=== PATIENT | male | born 1970 | race Caucasian/White ===

== ENCOUNTER → 2024-05-12 | Outpatient (CLI) | payer BC ==
[2024-05-12 10:54] LABS: BASO # 0.06 K/mm3 (0.02-0.10); EOS # 0.16 K/mm3 (0.04-0.40); EOS % 2.7 % (0.0-4.0); HEMATOCRIT 52.7 % (42.0-52.0); HEMOGLOBIN 17.3 g/dL (13.5-18.0); MEAN CELL VOLUME 88 fl (78-100); MEAN CORPUSCULAR HEMOGLOBIN 29 pg (27-31); MEAN CORPUSCULAR HGB CONC 33 g/dL (33-37); MEAN PLATELET VOLUME 8.4 fl (7.4-10.4); MONO # 0.73 K/mm3 (0.20-0.80); NEU # 3.61 K/mm3 (1.40-6.50); PLATELET COUNT 221 K/mm3 (130-400); RED CELL DISTRIBUTION WIDTH 13.7 % (11.5-14.5)
[2024-05-12 11:02] LABS: ALBUMIN 4.4 g/dL (3.5-5.0)
[2024-05-12 11:04] LABS: CALCIUM 9.7 mg/dL (8.3-10.5)
[2024-05-12 11:05] LABS: TOTAL PROTEIN 7.6 g/dL (6.4-8.3)
[2024-05-12 11:07] LABS: TOTAL BILIRUBIN 0.7 mg/dL (0.2-1.2)
[2024-05-12 11:11] LABS: MAGNESIUM 2.05 mg/dL (1.60-2.60)
[2024-05-12 11:17] LABS: PH-URINE 5.5 (5.0 - 8.0); URINE APPEARANCE CLEAR (CLEAR); URINE BILIRUBIN NEGATIVE (NEGATIVE); URINE BLOOD NEGATIVE (NEGATIVE); URINE COLOR DARK YELLOW (YELLOW); URINE GLUCOSE NEGATIVE (NEGATIVE); URINE KETONE NEGATIVE (NEGATIVE); URINE LEUKOCYTE ESTERASE NEGATIVE (NEGATIVE); URINE NITRATE NEGATIVE (NEGATIVE); URINE PROTEIN(semi-quant) NEGATIVE (NEGATIVE)
[2024-05-12 11:19] LABS: URINE WBC 0-1 /hpf (0-3)
== END ==
LOC: LAB 10:36
PROVIDERS: Internal Medicine
DX: Z12.5 Encounter for screening for malignant neoplasm of prostate (principal); I10 Essential (primary) hypertension; E23.0 Hypopituitarism; R73.03 Prediabetes; M25.532 Pain in left wrist